=== PATIENT | male | born 1980 | race Caucasian/White ===

== ENCOUNTER 2018-09-11 01:57 | Inpatient (IN) | payer BC ==
[~2018-09-11] VITALS: Ht 193 cm; Wt 108.0 kg
[2018-09-11] VITALS (7 sets, daily range): BP systolic 111–138; BP diastolic 61–88
[~2018-09-11 01:57] MED LIST: AMOXICILLIN 50500 MG PO; NOHOMEMEDICATIONS; TRAMADOL 50 MG50 MG PO
[2018-09-11 04:53] LABS: ABSOLUTE BASOPHILS 0.1 thou/uL (0.0-0.2); ABSOLUTE EOSINOPHILS 0.3 thou/uL (0.0-0.7); ABSOLUTE LYMPHOCYTES 0.8 thou/uL (0.8-5.3); ABSOLUTE MONOCYTES 0.6 thou/uL (0.0-1.2); ABSOLUTE NEUTROPHILS 5.4 thou/uL (1.6-8.1); BASOPHILS 0.7 %; EOSINOPHILS 3.6 %; HEMATOCRIT 47.2 % (42.0-52.0); HEMOGLOBIN 16.4 gm/dL (14.0-18.0); LYMPHOCYTES 10.9 %; MCHC 34.8 g/dL (28.0-37.0); MONOCYTES 7.8 %; MPV 9.3 fl. (7.2-11.1); NUCLEATED RBCS 0 /100WBC; PLATELET COUNT* 123 thou/uL (150-400); RBC 5.31 mil/uL (4.50-6.00); RDW-CV 12.7 % (10.5-14.5); WBC 7.1 thou/uL (4.0-11.0)
[2018-09-11 04:57] LABS: CALCIUM 8.4 mg/dL (8.5-10.1); CREATININE 1.1 mg/dL (0.6-1.3); POTASSIUM 4.1 mmol/L (3.5-5.1)
[2018-09-11 05:02] LABS: ALBUMIN 3.8 g/dL (3.4-5.0); TOTAL BILIRUBIN 0.6 mg/dL (<0.1-1.0); TOTAL PROTEIN 7.2 g/dL (6.4-8.2)
--- NOTE | 2018-09-11 06:46 | NUR ---
RECEIVED REPORT FROM ED. PT TRANSFERRED TO 231. PT A&OX4. VSS. ADMISSION HISTORY AND PHYSICAL ASSESSMENT COMPLETED AND CHARTED. PT ON 02 AT 2L NC WITH 96% O2 SAT. PT ON MEDSURG STATUS. PT UP ADLIB TO RESTROOM. ORIENTED TO ROOM AND CALL LIGHT. PT C/O OF BACK PAIN WITH PAIN SCALE OF 5/10-DENIES PAIN MEDS AT THIS TIME. CALL LIGHT WITHIN REACH. BED IN LOW POSITION.
--- NOTE | 2018-09-11 08:04 | NUR ---
ASSUMED PT. CARE AND RECEIVED REPORT AT 0730. PT A/OX4, VSS, PT. MED/SURG STATUS. PT. C/O SOA, HEADACHE/BACK ACHE 03/27. ON 2L NC @ 95% WITH SLIGHT WHEEZES THROUGH OUT. FULL ASSESSMENT COMPLETED, REFER TO CHARTING. BREATHING TREATMENT REQUESTED THROUGH RT AND PT. TREATED WITH MORPHINE FOR PAIN. AWAITING PT. TO BE SEEN BY HOSPITIALIST FOR FURTHER ORDERS THIS MORNING. CALL LIGHT IN REACH, WILL CONTINUE WITH PLAN OF CARE.
--- NOTE | 2018-09-11 12:18 | EKG ---
[place] [address] ELECTROCARDIOGRAM REPORT Name: RONNA TURPIN JESSICA Room: [address] ADM IN M.R.#: [id number] Admission: 09/11/18 Attend Phys: Arturo Waller MD Discharge: Date of : 78 Report #: [id number] THIS REPORT FOR: //name// [facility] ED Test Date: 2018-09-11 Test Time: 02:06:40 Pat Name: RONNA TURPIN Department: Room: [facility] Gender: M Government Relations Manager: Gertrudis GARCIA : 1980 Requested By: Debra Davenport Order Number: [id number] MD: Jonnie Link Measurements Intervals [place] Rate: 85 P: 26 SC: 172 QRS: -82 QRSD: 103 T: 63 QT: 354 QTc: 421 Interpretive Statements Sinus rhythm Markedly posterior QRS axis ST elev, probable normal early repol pattern Compared to ECG 02/14/2009 13:57:47 Posterior QRS axis now present ST (T wave) deviation now present Sinus bradycardia no longer present Sinus arrhythmia no longer present Incomplete right bundle-branch block no longer present Electronically Signed On 09-11-2018 12:18:36 RIVET MACHINE OPERATOR by Jonnie Link [email or web address] <ELECTRONICALLY SIGNED> By: Jonnie Link MD, [facility] 09/11/18 1218 5 5 Jonnie Link MD, FAC /EPI
--- NOTE | 2018-09-11 16:55 | NUR ---
PT. SLIGHTLY ANXIOUS THIS SHIFT ABOUT PLAN OF CARE, NOT FAMILAIR WITH HOSPITALS OR MEDS AND WANTS TO GO HOME. PT. GIRLFRIEND REMAINED AT BEDSIDE TODAY. PAIN TREATED WITH PO AND PAIN PATCH, TOLERATED WELL WITH RELIEF. PT. REPORTS INCREASE IN APPETITE DUE TO STERIODS. REMOVED OXYGEN PER PT. REQUEST, SAT. HAVE REMAINED WNL. PT. DOES EXHIBIT SOME LABORED BREATHING STILL, BUT IMPROVED FROM THIS MORNING. HOURLY ROUNDING COMPLETED THROUGH OUT THE DAY FOR PT. SAFETY. WILL CONTINUE WITH PLAN OF CARE.
[2018-09-12] VITALS: BP 133/77
[2018-09-12 04:00] VITALS: BP 125/66
[2018-09-12 04:03] LABS: HEMATOCRIT 43.1 % (42.0-52.0); MCH 30.1 pg (26.0-34.0); MCHC 33.4 g/dL (28.0-37.0); MCV 90.1 fL (80.0-100.0); MPV 9.4 fl. (7.2-11.1); RBC 4.78 mil/uL (4.50-6.00); RDW-CV 13.3 % (10.5-14.5); WBC 13.1 thou/uL (4.0-11.0)
[2018-09-12 04:12] LABS: HEMOGLOBIN 14.4 gm/dL (14.0-18.0)
[2018-09-12 04:27] LABS: ALBUMIN 3.4 g/dL (3.4-5.0); CALCIUM 8.8 mg/dL (8.5-10.1); POTASSIUM 4.8 mmol/L (3.5-5.1); TOTAL BILIRUBIN 0.4 mg/dL (<0.1-1.0); TOTAL PROTEIN 6.5 g/dL (6.4-8.2)
--- NOTE | 2018-09-12 05:41 | NUR ---
PT CARE ASSUMED AT 1930. SAT 92% IN 2L NC, PT STATED SOB, OXYGEN INCREASED TO 3L NC, PT SAID FELT BETTER, SAT 95%. UP AD JENNIFER. CALL LIGHT WITHIN REACH AND BED IN LOW POSITION. HOURLY ROUNDING DONE FOR PT SAFETY.
[2018-09-12 08:00] VITALS: BP 134/80
--- NOTE | 2018-09-12 09:00 | NUR ---
PT ARIVIED ON UNIT ABOUT 0750. A&Ox4. VITALS STABLE. UP AD JENNIFER. PERSONAL BELONGING WITH PT. SIGNIFICANT OTHER AT BEDSIDE. CALL LIGHT WITHING REACH. WILL CONTINUE TO MONITOR.
--- NOTE | 2018-09-12 10:22 | NUR ---
SPOKE TO THE PATIENT TO DISCUSS HOME SITUATION, DISCHARGE PLANNING, AND TO INFORM OF THE ROLE OF CM. PATIENT IS ALERT AND ORIENTED. PATIENT WORKS AND DRIVES. PATIENT RESIDES AT HOME WITH S.O. PATIENT OWNS 0 DME. PATIENT IS CURRENTLY ON 2L O2 VIA NC, BUT DOES NOT USE HOME OXYGEN. ELLA IS CONCERNED THAT HE MAY NEED OXYGEN AT HOME AT D/C. D/C SUPERVISING APPRAISER INFORMED THE PATIENT THAT HE WILL HAVE TESTING DONE BY RT PRIOR TO D/C TO DETERMINE THE NEED FOR OXYGEN. CM WILL REMAIN AVIALABLE TO ASSIST AND FOLLOW NEEDED.
[2018-09-12] MEDS ORDERED: LEVAQUIN 750 M750 MG PO (11:55)
[2018-09-12] MEDS ORDERED: ADVAIR HFA 230M12 GM INH (12:00)
[2018-09-12] MEDS ORDERED: PROAIR HFA8.5 GM INH (12:02)
[2018-09-12] MEDS ORDERED: PREDNISONE 10 M10 MG PO (12:05)
[2018-09-12 12:10] VITALS: BP 134/80
--- NOTE | 2018-09-12 12:45 | NUR ---
script called into [facility]
--- NOTE | 2018-09-12 13:00 | NUR ---
PT LEFT UNIT AT 1240. TRANSFERED BY WHEELCHAIR TO VEHICLE WITH NURSE AND SIGNIFICANT OTHER. PERSONAL ITEMS WITH PT. MEDICATIONS CALLED INTO PHARMACY. DISCHARGE PAPERS SIGNED, COPY SENT WITH PT. IV REMOVED.
== END 2018-09-12 12:40 | disposition home or self-care (01) | DRG 202 ==
LOC: M.ERS 01:57 → M.TBA-ER 04:06 → M.ORTHSURG 04:06 → M.2W 04:06 → M.ORTHSURG 09-12 07:50
PROVIDERS: Emergency Medicine; Internal Medicine
DX: J20.9 Acute bronchitis, unspecified (principal); J44.0 Chronic obstructive pulmonary disease with (acute) lower respiratory infection; F17.210 Nicotine dependence, cigarettes, uncomplicated; Z79.899 Other long term (current) drug therapy

== ENCOUNTER 2018-11-28 08:45 | Emergency (ER) | payer BC ==
[~2018-11-28] VITALS: Ht 193 cm; Wt 95.3 kg
[~2018-11-28 08:45] MED LIST changes: +ADVAIR HFA 230M12 GM INH; +LEVAQUIN 750 M750 MG PO; +PREDNISONE 10 M10 MG PO; +PROAIR HFA8.5 GM INH
[2018-11-28 09:39] LABS: ABSOLUTE LYMPHOCYTES 0.4 thou/uL (0.8-5.3); ABSOLUTE MONOCYTES 0.3 thou/uL (0.0-1.2); ABSOLUTE NEUTROPHILS 3.1 thou/uL (1.6-8.1); BASOPHILS 0.6 %; HEMATOCRIT 45.7 % (42.0-52.0); HEMOGLOBIN 15.7 gm/dL (14.0-18.0); LYMPHOCYTES 10.6 %; MCH 30.4 pg (26.0-34.0); MCHC 34.3 g/dL (28.0-37.0); MCV 88.7 fL (80.0-100.0); MONOCYTES 7.9 %; MPV 9.4 fl. (7.2-11.1); NUCLEATED RBCS 0 /100WBC; PLATELET COUNT* 95 thou/uL (150-400); POLYS 80.9 %; RBC 5.15 mil/uL (4.50-6.00); RDW-CV 13.1 % (10.5-14.5); WBC 3.9 thou/uL (4.0-11.0)
[2018-11-28 09:48] LABS: ANION GAP 6 mmol/L (7-16); BUN 21 mg/dL (7-18); CALCIUM 8.4 mg/dL (8.5-10.1); CHLORIDE 103 mmol/L (98-107); CO2 29 mmol/L (21-32); CREATININE 1.4 mg/dL (0.6-1.3); GLUCOSE 99 mg/dL (70-99); POTASSIUM 3.9 mmol/L (3.5-5.1); SODIUM 138 mmol/L (136-145)
[2018-11-28 09:50] LABS: INFLUENZA B ANTIGEN None Detected (None Detect)
[2018-11-28 09:59] LABS: ALBUMIN 3.8 g/dL (3.4-5.0); ALKALINE PHOSPHATASE 77 U/L (46-116); NT-PRO BRAIN NAT PEPTIDE 293 pg/mL (<300); SGOT 24 U/L (15-37); SGPT 31 U/L (30-65); TOTAL BILIRUBIN 0.8 mg/dL (<0.1-1.0); TOTAL PROTEIN 7.3 g/dL (6.4-8.2); TROPONIN-I LEVEL <0.06 ng/mL (<0.06)
[2018-11-28] MEDS ORDERED: VENTOLIN HFA 1818 GM INH (10:18)
[2018-11-28] MEDS ORDERED: MEDROL DOSPAK21 TA1 PO (10:19)
[2018-11-28] MEDS ORDERED: TAMIFLU75 MG PO (10:19)
[2018-11-28 11:09] VITALS: BP 110/54
--- NOTE | 2018-11-28 15:01 | EKG ---
[place] [address] ELECTROCARDIOGRAM REPORT Name: MAKENNA TURPINJD LOPEZ [id number] Admission: 11/28/18 Attend Phys: Discharge: 11/28/18 Date of : 78 Report #: [id number] THIS REPORT FOR: //name// [facility] ED Test Date: 2018-11-28 Test Time: 09:36:02 Pat Name: RONNA TURPIN Department: Room: Gender: M Design Chief: RADHA : 1980 Requested By: Sina Shen Order Number: [id number] MD: Ha Benjamin Measurements Intervals [place] Rate: 97 P: 38 IN: 163 QRS: -65 QRSD: 100 T: 64 QT: 332 QTc: 422 Interpretive Statements Sinus rhythm Probable left atrial enlargement LAD, consider left anterior fascicular block Baseline wander in lead(s) V3 Compared to ECG 09/11/2018 02:06:40 no change Electronically Signed On 11-28-2018 15:00:54 STAFF WRITER by Ha Benjamin [email or web address] <ELECTRONICALLY SIGNED> By: Ha Benjamin MD, FAC 11/28/18 1500 0936 [id number] Ha Benjamin MD, [facility] /EPI
== END 2018-11-28 11:07 | disposition home or self-care (01) ==
LOC: M.ERS 08:45
PROVIDERS: Emergency Medicine
DX: J11.1 Influenza due to unidentified influenza virus with other respiratory manifestations (principal); F17.200 Nicotine dependence, unspecified, uncomplicated

== ENCOUNTER 2018-12-02 10:05 | Emergency (ER) | payer BC ==
[~2018-12-02] VITALS: Ht 193 cm; Wt 99.8 kg
[~2018-12-02 10:05] MED LIST changes: +MEDROL DOSPAK21 TA1 PO; +TAMIFLU75 MG PO; +VENTOLIN HFA 1818 GM INH
[2018-12-02 10:54] LABS: ABSOLUTE EOSINOPHILS 0.1 thou/uL (0.0-0.7); ABSOLUTE LYMPHOCYTES 1.3 thou/uL (0.8-5.3); ABSOLUTE MONOCYTES 0.8 thou/uL (0.0-1.2); ABSOLUTE NEUTROPHILS 2.5 thou/uL (1.6-8.1); BASOPHILS 0.6 %; EOSINOPHILS 1.5 %; HEMATOCRIT 48.8 % (42.0-52.0); HEMOGLOBIN 16.8 gm/dL (14.0-18.0); LYMPHOCYTES 27.5 %; MCH 30.3 pg (26.0-34.0); MCHC 34.4 g/dL (28.0-37.0); MCV 88.1 fL (80.0-100.0); MONOCYTES 17.5 %; MPV 8.7 fl. (7.2-11.1); NUCLEATED RBCS 0 /100WBC; PLATELET COUNT* 109 thou/uL (150-400); POLYS 52.9 %; RBC 5.53 mil/uL (4.50-6.00); RDW-CV 13.1 % (10.5-14.5); WBC 4.6 thou/uL (4.0-11.0)
[2018-12-02 11:01] LABS: ANION GAP 8 mmol/L (7-16); BUN 17 mg/dL (7-18); CALCIUM 8.9 mg/dL (8.5-10.1); CHLORIDE 102 mmol/L (98-107); CO2 27 mmol/L (21-32); CREATININE 1.2 mg/dL (0.6-1.3); GLUCOSE 128 mg/dL (70-99); POTASSIUM 3.2 mmol/L (3.5-5.1); SODIUM 137 mmol/L (136-145)
[2018-12-02 11:07] LABS: ALBUMIN 3.7 g/dL (3.4-5.0); ALKALINE PHOSPHATASE 69 U/L (46-116); LIPASE 244 U/L (73-393); SGOT 28 U/L (15-37); SGPT 50 U/L (30-65); TOTAL BILIRUBIN 0.7 mg/dL (<0.1-1.0); TOTAL PROTEIN 7.4 g/dL (6.4-8.2); TROPONIN-I LEVEL <0.06 ng/mL (<0.06)
[2018-12-02] MEDS ORDERED: VENTOLIN HFA 1818 GM INH (13:41)
[2018-12-02] MEDS ORDERED: PREDNISONE 10 M10 MG PO (13:43)
[2018-12-02] MEDS ORDERED: ADVAIR HFA 230M12 GM INH (13:43)
[2018-12-02 13:54] VITALS: BP 119/74
--- NOTE | 2018-12-05 10:53 | EKG ---
[place] [address] ELECTROCARDIOGRAM REPORT Name: MAKENNA TURPINJD LOPEZ Room: [facility]#: [id number] Admission: 12/02/18 Attend Phys: Discharge: 12/02/18 Date of : 78 Report #: [id number] THIS REPORT FOR: //name// [facility] ED Test Date: 2018-12-02 Test Time: 10:54:26 Pat Name: RONNA TURPIN Department: Room: Gender: M Project Systems Engineer: : 1980 Requested By: Julee Stratton Order Number: [id number] MD: Humberto Ramirez Measurements Intervals [place] Rate: 80 P: 21 HI: 151 QRS: -47 QRSD: 108 T: 56 QT: 378 QTc: 436 Interpretive Statements Sinus rhythm LAD, consider left anterior fascicular block Abnormal R-wave progression, late transition Compared to ECG 11/28/2018 09:36:02 No significant changes Electronically Signed On 12-05-2018 10:53:43 OPTOMETRIC TECHNOLOGIST by Humberto Ramirez [email or web address] <ELECTRONICALLY SIGNED> By: Humberto Ramirez MD, [facility] 12/05/18 1053 1054 105 Humberto Ramirez MD, FAC /EPI
== END 2018-12-02 13:54 | disposition home or self-care (01) ==
LOC: M.ERS 10:05
PROVIDERS: Nurse Practitioner Family
DX: J11.1 Influenza due to unidentified influenza virus with other respiratory manifestations (principal); F17.200 Nicotine dependence, unspecified, uncomplicated